=== PATIENT | male | born 1955 | race Caucasian/White ===

== ENCOUNTER 2023-11-28 05:52 | Day surgery (SDC) | payer OTHER, MEDICAID ==
[~2023-11-28] VITALS: Ht 180.3 cm; Wt 65.9 kg
[~2023-11-28 05:52] MED LIST: ALEN70TA65 PO; ATOR20TA PO; CHOL500043 PO; OS500 PO; TIOT185 IH
[2023-11-28] MEDS ORDERED: RINGERS SOLUTION,LACTATED 500 ML IV ONE ×2 (06:00→06:43)
[2023-11-28] MEDS ORDERED: POVIDONE-IODINE 5% 30 ML OPHTHALMIC SOLUTION ONE (06:16)
[2023-11-28] MEDS ORDERED: PHENYLEPHRINE HCL 2.5% 2 ML OPHTHALMIC SOLUTION ONE (06:38)
[2023-11-28] MEDS ORDERED: MOXIFLOXACIN HCL 0.5% 3 ML OPHTHALMIC SOLUTION ONE (06:38)
[2023-11-28] MEDS ORDERED: KETOROLAC TROMETHAMINE 0.5% 5 ML OPHTHALMIC SOLUTION ONE (06:38)
[2023-11-28] MEDS ORDERED: TROPICAMIDE 1% 2 ML OPHTHALMIC SOLUTION ONE (06:38)
[2023-11-28] MEDS: KETOROLAC TROMETHAMINE 0.5% 5 ML OPHTHALMIC SOLUTION OD SCH ×3 (06:55→07:05)
[2023-11-28] MEDS: TROPICAMIDE 1% 2 ML OPHTHALMIC SOLUTION OD SCH ×3 (06:56→07:05)
[2023-11-28] MEDS: PHENYLEPHRINE HCL 2.5% 2 ML OPHTHALMIC SOLUTION OD SCH ×3 (06:56→07:06)
[2023-11-28] MEDS: MOXIFLOXACIN HCL 0.5% 3 ML OPHTHALMIC SOLUTION OD SCH ×3 (06:56→07:06)
[2023-11-28] MEDS ORDERED: TETRACAINE HCL/PF 0.5% 4 ML OPHTHALMIC SOLUTION ONE (10:40)
[2023-11-28] MEDS ORDERED: EPINEPHrine 1:1,000 [1 MG/ML] VIAL ONE (10:43)
[2023-11-28] MEDS ORDERED: BALANCED SALT 15 ML OPHTHALMIC IRRIG.SOLN ONE (11:07)
[2023-11-28] MEDS ORDERED: LIDOCAINE/PF 1% 2 ML VIAL ONE (11:13)
[2023-11-28] MEDS ORDERED: MIDAZOLAM HCL 2 MG/2 ML VIAL IVP ONE (12:00)
[2023-11-28] MEDS ORDERED: FentaNYL CITRATE PF 100 MCG/2 ML VIAL IVP ONE (12:00)
[2023-11-28] MEDS ORDERED: GLYCOPYRROLATE 0.2 MG/ML VIAL IM ONE (12:00)
[2023-11-28] MEDS ORDERED: ALBUTEROL SULFATE HFA 90 MCG/PUFF 8 GM INHALER IH ONE (12:00)
== END 2023-11-28 09:05 | disposition home or self-care (01) ==
LOC: SURGERY 05:52
PROVIDERS: ATTEND Ophthalmology
DX: H25.11 Age-related nuclear cataract, right eye (principal); Z79.899 Other long term (current) drug therapy; J44.9 Chronic obstructive pulmonary disease, unspecified; F17.210 Nicotine dependence, cigarettes, uncomplicated; J43.9 Emphysema, unspecified
CPT/HCPCS: 66984; 93005; J0171; J3010; J3490 ×2; J2250; Q9967; J7120; V2632; J3535

== ENCOUNTER 2024-02-27 05:45 | Day surgery (SDC) | payer OTHER, MEDICAID ==
[~2024-02-27] VITALS: Ht 180.3 cm; Wt 65.9 kg
[~2024-02-27 05:45] MED LIST changes: +KETOROLAC TROMETHAMINE 0.5% 5 ML OPHTHALMIC SOLUTION ONE; +MOXIFLOXACIN HCL 0.5% 3 ML OPHTHALMIC SOLUTION ONE; +PHENYLEPHRINE HCL 2.5% 2 ML OPHTHALMIC SOLUTION ONE; +RINGERS SOLUTION,LACTATED 500 ML IV ONE; +TROPICAMIDE 1% 2 ML OPHTHALMIC SOLUTION ONE
[2024-02-27] MEDS ORDERED: MIDAZOLAM HCL 2 MG/2 ML VIAL IVP ONE (05:46)
[2024-02-27] MEDS ORDERED: FentaNYL CITRATE PF 100 MCG/2 ML VIAL IVP ONE (05:46)
[2024-02-27] MEDS ORDERED: BALANCED SALT 15 ML OPHTHALMIC IRRIG.SOLN IO ONE (05:46)
[2024-02-27] MEDS ORDERED: CHONDR SULF A SOD/HYALURONATE 1.05 ML KIT IO ONE (05:46)
[2024-02-27] MEDS ORDERED: BALANCED SALT 15 ML OPHTHALMIC IRRIG.SOLN ONE (06:26)
[2024-02-27] MEDS ORDERED: EPINEPHrine 1:1,000 [1 MG/ML] VIAL ONE (06:26)
[2024-02-27] MEDS ORDERED: LIDOCAINE/PF 1% 2 ML VIAL ONE (06:26)
[2024-02-27] MEDS ORDERED: TETRACAINE HCL/PF 0.5% 4 ML OPHTHALMIC SOLUTION ONE (06:27)
[2024-02-27] MEDS ORDERED: POVIDONE-IODINE 5% 30 ML OPHTHALMIC SOLUTION ONE (06:39)
[2024-02-27] MEDS: RINGERS SOLUTION,LACTATED 500 ML IV ONE (07:02)
[2024-02-27] MEDS: PHENYLEPHRINE HCL 2.5% 2 ML OPHTHALMIC SOLUTION OS SCH (07:02)
[2024-02-27] MEDS: TROPICAMIDE 1% 2 ML OPHTHALMIC SOLUTION OS SCH (07:02)
[2024-02-27] MEDS: MOXIFLOXACIN HCL 0.5% 3 ML OPHTHALMIC SOLUTION OS SCH (07:02)
[2024-02-27] MEDS: KETOROLAC TROMETHAMINE 0.5% 5 ML OPHTHALMIC SOLUTION OS SCH (07:02)
[2024-02-27] MEDS ORDERED: RINGERS SOLUTION,LACTATED 1,000 ML IV ONE (08:52)
== END 2024-02-27 10:00 | disposition home or self-care (01) ==
LOC: SURGERY 05:45
PROVIDERS: ATTEND Ophthalmology
DX: H25.12 Age-related nuclear cataract, left eye (principal); E78.00 Pure hypercholesterolemia, unspecified; J44.9 Chronic obstructive pulmonary disease, unspecified; Z79.899 Other long term (current) drug therapy; Z98.890 Other specified postprocedural states
CPT/HCPCS: 66984; C1783; J0171; J3010; J3490; J2250; Q9967; J7120 ×2